=== PATIENT | female | born 1975 | race Caucasian/White ===

== ENCOUNTER 2022-04-28 14:03 | Outpatient (REF) | payer OTHER, SELFPAY ==
[2022-04-28 14:45] LABS: MANUAL DIFF FLAG NO
[2022-04-28 15:19] LABS: Basophils Percent Auto 0.6 % (0-2); Eosinophils Absolute Auto 0.4 X10*3/uL (0.0-0.4); Hematocrit 41.8 % (37.0-47.0); Hemoglobin 13.6 g/dl (12.0-16.0); Imm Gran Abs Auto 0.02 X10*3/uL (0.00-0.03); Imm Gran Pct Auto 0.3 % (0.0-0.4); Lymphocytes Absolute Auto 2.1 X10*3/uL (1.2-4.9); Lymphocytes Percent Auto 30.4 % (20-40); Mean Corpuscular HGB Conc 32.5 g/dl (31.0-35.0); Mean Corpuscular Hemoglobin 30.2 pg (27.0-33.0); Mean Corpuscular Volume 92.9 fL (80.0-98.0); Mean Platelet Volume 9.8 fL (9.4-12.3); Monocytes Absolute Auto 0.4 X10*3/uL (0.1-1.2); Monocytes Percent Auto 6.1 % (2-11); Neutrophils Percent Auto 56.6 % (45-73); Platelet Count 201 X10*3/uL (160-400); Red Cell Distribution Width 12.7 % (11.0-16.0)
[2022-04-28 15:27] LABS: Estimated Average Glucose 100 mg/dL; Hemoglobin A1c % 5.1 %
[2022-04-28 15:48] LABS: Alanine Aminotransferase 67 U/L (0-31); Albumin Level 4.1 g/dL (3.5-5.0); Alkaline Phosphatase 56 U/L (39-117); Anion Gap 13 (12-20); Aspartate Amino Transferase 22 U/L (5-31); Bilirubin Total 0.3 mg/dL (0.0-1.0); Blood Urea Nitrogen 14 mg/dL (9-16); C Reactive Protein 0.08 mg/dL (< or = 0.50); Calcium 8.9 mg/dL (8.4-10.2); Carbon Dioxide 21 mmol/L (22-29); Chloride 111 mmol/L (96-108); Cholesterol 183 mg/dL; Estimated Glomerular Filt Rate > 60; Glucose Random 91 mg/dL (60-115); HDL Cholesterol 42 mg/dL; Iron 95 mcg/dL (30-160); LDL Cholesterol Calculated 96 mg/dl; Percent Iron Saturation 26 % (15-50); Potassium 3.9 mmol/L (3.3-5.1); Sodium 141 mmol/L (135-145); Total Iron Binding Capacity 366 mcg/dL (228-428); Total Protein 6.8 g/dL (6.5-8.0); Triglycerides 229 mg/dL; Unsaturated Iron Binding 271 ug/dL
[2022-04-28 16:15] LABS: Ferritin 36 ng/mL (10-250); Insulin 7 uU/mL (2-29); TSH reflex Free T4 1.93 uIU/mL (0.32-4.0); Vitamin D 25-OH Total 28.3 ng/mL (>30)
[2022-04-28 16:24] LABS: Folate > 20.0 ng/mL (> or = 4.0); Vitamin B12 > 2000 pg/mL (200-900)
[2022-04-29 12:06] LABS: Calcium (PTHI) 8.9 mg/dL (8.6-10.2); PTHI 64 pg/mL (16-77)
[2022-05-03 16:52] LABS: Zinc 70 mcg/dL (60-130)
[2022-05-04 16:55] LABS: Vitamin B1 138 nmol/L (8-30)
[2022-05-04 17:27] LABS: Vitamin A 85 mcg/dL (38-98)
== END 2022-04-28 14:04 | disposition home or self-care (01) ==
LOC: HO.LAB 14:03
PROVIDERS: PCP Physician Assistant Medical; Visit Provider Physician Assistant
DX: E66.01 Morbid (severe) obesity due to excess calories (principal); M79.7 Fibromyalgia; Z98.890 Other specified postprocedural states; Z98.84 Bariatric surgery status; Z90.710 Acquired absence of both cervix and uterus; Z87.19 Personal history of other diseases of the digestive system
CPT/HCPCS: 36415; 80053; 80061; 82306; 82607; 82728; 82746; 83036; 83525; 83540; 83970; 84425; 84443; 84590; 84630; 85025; 86140